=== PATIENT | female | born 1945 | race Caucasian/White ===

== ENCOUNTER 2018-04-29 02:45 | Emergency (ER) | payer MEDICARE ==
[2018-04-29] MEDS ORDERED: diazePAM 5 MG TABLET PO STA (03:07)
--- NOTE | 2018-04-29 03:08 | ED Physician Documentation ---
History of Present Illness - Stated complaint Stated Complaint: ANXIETY,SANDRA LEG CRAMPS - Chief complaint Chief Complaint: General - History obtained from History obtained from: Patient - Additonal information Additional information: 72-year-old female presents the emergency department complaining of feeling very anxious and agitated. The patient is denying suicidal homicidal ideations. The patient reports Her restless leg syndrome is "acting up. "The patient is denying chest pain, shortness of breath, nausea, vomiting or abdominal pain. The patient reports not being able to sleep because of feeling generally anxious. Symptoms are described as moderate. No triggering factors. No other associated symptoms Review of Systems Constitutional: denies: Fever, Chills Eyes: denies: Discharge Ears: denies: Ear pain Nose: denies: Congestion Throat: denies: Sore throat Cardiac: denies: Chest pain / pressure Respiratory: denies: Dyspnea GI: denies: Abdominal Pain : denies: Dysuria Skin: denies: Rash Neurologic: denies: Generalized weakness, Focal weakness Psychiatric: reports: Anxiety. denies: Suicidal, Homicidal Immunocompromised: denies: Chemotherapy PD PAST MEDICAL HISTORY - Past Medical History Cardiovascular: Hypertension Endocrine/Autoimmune: HyPOthyroidism GI: GERD Psych: Depression, Anxiety - Past Surgical History Past Surgical History: Yes General: Cholecystectomy - Present Medications Home Medications: Ambulatory Orders Medication Instructions Recorded Confirmed Amlodipine Besylate/Benazepril 10 mg PO DAILY 06/03/13 04/29/18 [Amlodipine-Benazepril 10-20 mg] Lamotrigine 1 tab PO DAILY 06/03/13 04/29/18 Levothyroxine [Synthroid] 125 mg PO DAILY 06/03/13 04/29/18 Lorazepam [Ativan] 1 tab PO DAILY 06/03/13 04/29/18 Albuterol Sulfate [Proair Hfa 1 puffs INH PRN PRN 04/29/18 04/29/18 Inhaler] Budesonide 1 puffs INH DAILY 04/29/18 04/29/18 Budesonide/Formoterol Fumarate 2 puffs INH DAILY 04/29/18 04/29/18 [Symbicort 160-4.5 Mcg Inhaler] Omeprazole [PriLOSEC] 2 tab PO DAILY 04/29/18 04/29/18 Pregabalin [Lyrica] 3 tab PO DAILY 04/29/18 04/29/18 Vortioxetine Hydrobromide 1 tab PO DAILY 04/29/18 04/29/18 [Trintellix] metFORMIN [Glucophage] 2 tab PO DAILY 04/29/18 04/29/18 - Allergies Allergies/Adverse Reactions: Allergies Allergy/AdvReac Type Severity Reaction Status Date / Time hydrochlorothiazide AdvReac Severe Edema Verified 04/29/18 02:55 iodine AdvReac Severe Edema Verified 04/29/18 02:55 prochlorperazine edisylate * AdvReac Severe Cramps Verified 04/29/18 02:55 [From Compazine] prochlorperazine maleate * AdvReac Severe Cramps Verified 04/29/18 02:55 [From Compazine] - Social History Does the pt smoke?: No Smoking Status: Never smoker Does the pt drink ETOH?: No Does the pt have substance abuse?: No - Immunizations Immunizations are current?: Yes PD ED PE NORMAL - General General: Alert and oriented X 3 - HEENT HEENT: Atraumatic, PERRL, EOMI - Neck Neck: Supple, no meningeal sign - Cardiac Cardiac: RRR, Strong equal pulses - Respiratory Respiratory: No respiratory distress, Clear bilaterally - Abdomen Abdomen: Soft, Non tender - Derm Derm: Normal color - Extremities Extremities: No deformity - Neuro Neuro: Alert and oriented X 3, Normal speech PD ED PE EXPANDED - Psych Psych: Anxious. No: Suicidal, Homicidal Results - Vitals Vitals: Vital Signs - 24 hr 04/29/18 04/29/18 02:52 05:11 Temperature 36.3 C L Heart Rate 88 82 Respiratory 22 16 Rate Blood Pressure 147/75 H 139/77 H O2 Saturation 95 94 Oxygen O2 Source Nasal cannula - EKG (time done) 03: 16 Rate: Rate (enter#) Rhythm: NSR Intervals: LBBB Ischemia: Non specific changes Compare to prior EKG: Old EKG unavailable - Labs Labs: Laboratory Tests 04/29/18 04/29/18 04/29/18 03:25 03:25 03:25 WBC 11.7 H RBC 4.11 L Hgb 10.1 L Hct 32.2 L MCV 78.5 L MCH 24.5 L MCHC 31.3 L RDW 17.2 H Plt Count 300 MPV 7.8 L Neut # (Auto) 8.4 H Lymph # (Auto) 1.9 [place] # (Auto) 1.0 Eos # (Auto) 0.2 Baso # (Auto) 0.2 H Absolute Nucleated RBC 0.01 Nucleated RBC % 0.0 Sodium 136 Potassium 4.2 Chloride 95 L Carbon Dioxide 32 Anion Gap 9.0 BUN 18 Creatinine 0.9 Estimated GFR (MDRD) 61 L Glucose 133 H Calcium 8.8 Magnesium 2.2 Total Bilirubin 0.5 AST 19 ALT 14 Alkaline Phosphatase 100 Troponin I < 0.04 Total Protein 7.4 Albumin 3.4 Globulin 4.0 Albumin/Globulin Ratio 0.9 L Lipase 34 Urine Color Urine Clarity Urine pH Ur Specific [place] Urine Protein Urine Glucose (UA) Urine Ketones Urine Occult Blood Urine Nitrite Urine Bilirubin Urine Urobilinogen Ur Leukocyte Esterase Urine RBC Urine WBC Urine WBC Clumps Ur Epithelial Cells Ur Squamous Epith Cells Urine Bacteria Ur Microscopic Review Urine Culture Comments 04/29/18 04:25 WBC RBC Hgb Hct MCV MCH MCHC RDW Plt Count MPV Neut # (Auto) Lymph # (Auto) [place] # (Auto) Eos # (Auto) Baso # (Auto) Absolute Nucleated RBC Nucleated RBC % Sodium Potassium Chloride Carbon Dioxide Anion Gap BUN Creatinine Estimated GFR (MDRD) Glucose Calcium Magnesium Total Bilirubin AST ALT Alkaline Phosphatase Troponin I Total Protein Albumin Globulin Albumin/Globulin Ratio Lipase Urine Color LT. YELLOW Urine Clarity CLEAR Urine pH 6.0 Ur Specific [place] <=1.005 Urine Protein NEGATIVE Urine Glucose (UA) NEGATIVE Urine Ketones NEGATIVE Urine Occult Blood NEGATIVE Urine Nitrite NEGATIVE Urine Bilirubin NEGATIVE Urine Urobilinogen 0.2 (NORMAL) Ur Leukocyte Esterase TRACE H Urine RBC None Seen Urine WBC 6-10 H Urine WBC Clumps PRESENT Ur Epithelial Cells RARE Renal Tubular Ur Squamous Epith Cells NONE SEEN Urine Bacteria Few Ur Microscopic Review INDICATED Urine Culture Comments INDICATED PD MEDICAL DECISION MAKING - ED course ED course: On reevaluation the patient resting comfortably and appear to be in no significant distress. The patient's workup does not reveal a clear etiology for the source of her symptoms. The patient's urine is equivocal, the patient has no symptoms suggestive of a urinary tract infection and a culture will be sent. No antibiotics will be started unless the culture comes back positive. Currently, the patient appears appropriate for discharge and ongoing outpatient management. I discussed with her the incidental finding of anemia, I advise further evaluation as an outpatient with primary care. I discussed warning signs and recommended returning to the emergency department immediately for worsening or any concerns. - Sepsis Event Vital Signs: Vital Signs - 24 hr 04/29/18 04/29/18 02:52 05:11 Temperature 36.3 C L Heart Rate 88 82 Respiratory 22 16 Rate Blood Pressure 147/75 H 139/77 H O2 Saturation 95 94 Oxygen O2 Source Nasal cannula Departure - Departure Disposition: Home, Self Care Clinical Impression: Anxiety Anemia Qualifiers: Anemia type: unspecified type Qualified Code(s): D64.9 - Anemia, unspecified Condition: Good Instructions: ED Anxiety Reaction Ch, Anemia Ch Follow-Up: Rose Cota MD [Primary Care Provider] - Within 3 Days Comments: Please return to the emergency department for worsening symptoms or any concerns
[2018-04-29 03:46] LABS: BASOPHILS # (AUTO) 0.2 10^3/uL (0.0-0.1); BASOPHILS % (AUTO) 1.7 %; EOSINOPHILS # (AUTO) 0.2 10^3/uL (0.0-0.7); EOSINOPHILS % (AUTO) 1.3 %; HGB - HEMOGLOBIN 10.1 g/dL (12.0-16.0); LYMPHOCYTES # (AUTO) 1.9 10^3/uL (1.5-3.5); LYMPHOCYTES % (AUTO) 16.6 %; MEAN CORPUSCULAR HEMOGLOBIN 24.5 pg (27.0-31.0); MEAN CORPUSCULAR HGB CONC 31.3 g/dL (32.0-36.0); MEAN CORPUSCULAR VOLUME 78.5 fL (81.0-99.0); MEAN PLATELET VOLUME 7.8 fL (7.9-10.8); MONOCYTES % (AUTO) 8.2 %; NEUTROPHILS # (AUTO) 8.4 10^3/uL (1.5-6.6); NEUTROPHILS % (AUTO) 72.2 %; PLT - PLATELET COUNT 300 10^3/uL (130-450); RED BLOOD COUNT 4.11 10^6/uL (4.20-5.40); RED CELL DISTRIBUTION WIDTH 17.2 % (12.0-15.0); WHITE BLOOD COUNT 11.7 x10^3/uL (4.8-10.8)
[2018-04-29 03:58] LABS: ALBUMIN 3.4 g/dL (3.2-5.5); ALBUMIN/GLOBULIN RATIO 0.9 (1.0-2.2); BILIRUBIN,TOTAL 0.5 mg/dL (0.2-1.0); CALCIUM 8.8 mg/dL (8.5-10.3); CREATININE 0.9 mg/dL (0.4-1.0); MAGNESIUM 2.2 mg/dL (1.7-2.8); TOTAL PROTEIN 7.4 g/dL (6.7-8.2)
[2018-04-29 04:47] LABS: BILIRUBIN,URINE NEGATIVE (NEGATIVE); GLUCOSE, URINE (UA) NEGATIVE (NEGATIVE); KETONES,URINE (UA) NEGATIVE (NEGATIVE); LEUKOCYTE ESTERASE, URINE TRACE (NEGATIVE); NITRITE,URINE NEGATIVE (NEGATIVE); OCCULT BLOOD,URINE NEGATIVE (NEGATIVE); PROTEIN,URINE NEGATIVE (NEGATIVE); UROBILINOGEN,URINE 0.2 (NORMAL) E.U./dL (NORMAL)
[2018-04-29 04:54] LABS: CLARITY,URINE CLEAR (CLEAR)
[2018-04-29 05:07] LABS: BACTERIA,URINE Few /HPF (None Seen); EPITHELIAL CELLS,UR RARE Renal Tubular /HPF (<= Few); RBC,URINE None Seen /HPF (0-5); SQUAMOUS EPITHELIAL CELL,UR NONE SEEN (<= Few); WBC CLUMPS,URINE PRESENT
[2018-04-29 05:12] VITALS: BP 139/77
== END 2018-04-29 05:23 | disposition home or self-care (01) ==
LOC: ED 02:45
DX: F41.9 Anxiety disorder, unspecified (principal); D64.9 Anemia, unspecified; I10 Essential (primary) hypertension
CPT/HCPCS: 36415; 80053; 81001; 83690; 83735; 84484; 85025; 87077; 87086; 87181; 93005; 99283; A9270; 81003

== ENCOUNTER 2020-06-28 11:39 | Outpatient (CLI) | payer OTHER ==
[2020-06-28 16:34] LABS: BASOPHILS % (AUTO) 0.5 %; EOSINOPHILS # (AUTO) 0.1 10^3/uL (0.0-0.7); EOSINOPHILS % (AUTO) 1.2 %; HGB - HEMOGLOBIN 12.6 g/dL (12.0-16.0); LYMPHOCYTES # (AUTO) 1.2 10^3/uL (1.5-3.5); LYMPHOCYTES % (AUTO) 14.9 %; MEAN CORPUSCULAR HEMOGLOBIN 29.9 pg (27.0-31.0); MEAN CORPUSCULAR HGB CONC 30.2 g/dL (32.0-36.0); MEAN PLATELET VOLUME 10.4 fL (7.9-10.8); MONOCYTES # (AUTO) 0.6 10^3/uL (0.0-1.0); MONOCYTES % (AUTO) 7.8 %; NEUTROPHILS # (AUTO) 6.1 10^3/uL (1.5-6.6); NEUTROPHILS % (AUTO) 74.9 %; PLT - PLATELET COUNT 255 10^3/uL (130-450); RED BLOOD COUNT 4.21 10^6/uL (4.20-5.40); RED CELL DISTRIBUTION WIDTH 14.3 % (12.0-15.0); WHITE BLOOD COUNT 8.1 x10^3/uL (4.8-10.8)
[2020-06-28 17:35] LABS: THYROID STIMULATING HORMONE 1.07 uIU/mL (0.34-5.60)
[2020-06-28 17:37] LABS: FERRITIN 37.9 ng/mL (11.0-306.8)
[2020-06-28 17:40] LABS: % IRON SATURATION 17 % (20-50); ALBUMIN 3.8 g/dL (3.2-5.5); ALKALINE PHOSPHATASE 84 IU/L (42-121); ALT ALANINE AMINOTRANSFERASE 14 IU/L (10-60); AST ASPARTATE AMINOTRANSFERASE 19 IU/L (10-42); BILIRUBIN,TOTAL 0.8 mg/dL (0.2-1.0); BUN - BLOOD UREA NITROGEN 16 mg/dL (6-20); CALCIUM 9.8 mg/dL (8.5-10.3); CARBON DIOXIDE - CO2 38 mmol/L (21-32); CHLORIDE 95 mmol/L (101-111); CHOL/HDL RATIO 2.3 (<4.4); CHOLESTEROL 142 mg/dL; CREATININE 0.9 mg/dL (0.4-1.0); GLUCOSE 122 mg/dL (70-100); HDL CHOLESTEROL 63 mg/dL; IRON 77 ug/dL (28-170); LDL CHOLESTEROL,CALCULATED 60 mg/dL; SODIUM 141 mmol/L (135-145); TOTAL IRON BINDING CAPACITY 455 ug/dL (250-450); TOTAL PROTEIN 7.6 g/dL (6.7-8.2); TRANSFERRIN 325 mg/dL (192-382); VLDL CHOLESTEROL 19 mg/dL
[2020-06-28 22:13] LABS: HEMOGLOBIN A1c% 5.3 % (4.27-6.07)
== END 2020-06-28 11:40 | disposition home or self-care (01) ==
LOC: LAB.S 11:39
PROVIDERS: ATTEND Family Medicine
DX: E61.1 Iron deficiency (principal); I10 Essential (primary) hypertension; E03.9 Hypothyroidism, unspecified; R73.02 Impaired glucose tolerance (oral)
CPT/HCPCS: 36415; 80053; 80061; 82728; 83036; 83540; 83721; 84443; 84466; 85025

== ENCOUNTER 2021-01-06 06:57 | Outpatient (CLI) | payer MEDICARE | END 2021-01-06 06:58 | disposition EMS.NT | LOC: EMS 06:57 | DX: Z03.89 Encounter for observation for other suspected diseases and conditions ruled out (principal) ==

== ENCOUNTER 2021-04-03 08:09 | Outpatient (CLI) | payer MEDICARE | END 2021-04-03 08:10 | disposition home or self-care (01) | LOC: EMS 08:09 | DX: Z03.89 Encounter for observation for other suspected diseases and conditions ruled out (principal) ==